=== PATIENT | female | born 1995 | race American Indian/Alaskan Native ===

== ENCOUNTER 2017-03-18 08:47 | Emergency (ER) | payer SELFPAY ==
[2017-03-18 09:02] VITALS: BP 123/98
--- NOTE | 2017-03-18 09:19 | EDM.PDOC ---
ED HPI GENERAL MEDICAL PROBLEM - General Chief Complaint: Upper Extremity Injury/Pain Stated Complaint: INJURED LT ARM Time Seen by Provider: 03/18/17 09:08 Source of Information: Reports: Patient History Limitations: Reports: No Limitations - History of Present Illness INITIAL COMMENTS - FREE TEXT/NARRATIVE: The patient was playing softball last night and she collided with another player and fell on her left arm. It was outstreached and she hyperextended it. She has pain to the left elbow now. She cannot fully extend it. She had surgery on that elbow when she was 2 from a fracture. She denies other injuries. She is right handed. Onset: Sudden Duration: Day(s): (Last night) Location: Reports: Upper Extremity, Left (elbow) Quality: Reports: Sharp Severity: Moderate Improves with: Reports: Immobilization Worsens with: Reports: Movement Context: Reports: Activity (Playing softball) Associated Symptoms: Reports: No Other Symptoms Left Elbow Pain Score (Numeric/FACES): 8 - Related Data Allergies Allergy/AdvReac Type Severity Reaction Status Date / Time No Known Allergies Allergy Verified 03/18/17 09:02 Home Meds: Home Meds . [No Known Home Meds] 03/18/17 [History] Past Medical History Musculoskeletal History: Reports: Fracture - Past Surgical History HEENT Surgical History: Reports: Other (See Below) Other HEENT Surgeries/Procedures: wisdom teeth removed. Musculoskeletal Surgical History: Reports: Other (See Below) Other Musculoskeletal Surgeries/Procedures:: surgical repair of Fx to L) arm. Social & Family History - Tobacco Use Smoking Status *Q: Current Every Day Smoker Years of Tobacco use: 1 Packs/Tins Daily: 0.1 Second Hand Smoke Exposure: No - Caffeine Use Caffeine Use: Reports: Coffee - Recreational Drug Use Recreational Drug Use: No Review of Systems - Review of Systems Review Of Systems: See Below Constitutional: Reports: No Symptoms Eyes: Reports: No Symptoms Ears: Reports: No Symptoms Nose: Reports: No Symptoms Mouth/Throat: Reports: No Symptoms Respiratory: Reports: No Symptoms Cardiovascular: Reports: No Symptoms GI/Abdominal: Reports: No Symptoms Genitourinary: Reports: No Symptoms Musculoskeletal: Reports: Other (Left elbow injury) ED EXAM, GENERAL - Physical Exam Exam: See Below Exam Limited By: No Limitations General Appearance: Alert, No Apparent Distress Ears: Normal External Exam Nose: Normal Inspection Head: Atraumatic, Normocephalic Neck: Normal Inspection Respiratory/Chest: No Respiratory Distress Extremities: Other (Edema and pain upon palpation to the entire elbow. Good sensation and pulses distally.) Course - Vital Signs Last Recorded V/S: Last Vital Signs Temp 97.0 F 03/18/17 08:55 Pulse 94 03/18/17 08:55 Resp 16 03/18/17 08:55 BP 123/98 H 03/18/17 08:55 Pulse Ox 99 03/18/17 08:55 - Re-Assessments/Exams Free Text/Narrative Re-Assessment/Exam: 03/18/17 10:24 Her x-ray shows a joint effusion with fat pad signs. I do not see a fracture. I had Dr Ashford look at it and he did not see a fracture just the joint effusion. I will give her something for and have her follow up with Dr Noel next week. Departure - Departure Time of Disposition: 10:30 Disposition: Home, Self-Care 01 Condition: Good Clinical Impression: Hyperextension injury of left elbow Qualifiers: Encounter type: initial encounter Qualified Code(s): S59.802A - Other specified injuries of left elbow, initial encounter Sprain of left elbow Qualifiers: Encounter type: initial encounter Qualified Code(s): S53.402A - Unspecified sprain of left elbow, initial encounter - Discharge Information Referrals: Tin Noel MD [Physician] - 1 Week Forms: ED Department Discharge Additional Instructions: Ice your elbow for 15 minutes every other hour while awake for 2 days. Try to elevate your elbow above your heart for 2 days. Take the hydrocodone for pain and or motrin. Follow up with Dr Noel within 1 week.
--- NOTE | 2017-03-18 10:06 | CR ---
Left elbow: Multiple views of the left elbow were obtained. Soft tissue calcifications are seen. These are felt to be incidental. Contraceptive device is identified within the subcutaneous tissues as an incidental note. Joint spaces are maintained. Small joint effusion appears to be present. No acute fracture or other bony abnormality is appreciated. Impression: 1. Possible joint effusion. Other incidental findings. 2. No acute bony abnormality is identified on left elbow study. Diagnostic code #2
== END 2017-03-18 10:55 | disposition home or self-care (01) ==
LOC: JD.ED 08:47
DX: S53.402A Unspecified sprain of left elbow, initial encounter (principal); S59.802A Other specified injuries of left elbow, initial encounter; F17.210 Nicotine dependence, cigarettes, uncomplicated; W03.XXXA Other fall on same level due to collision with another person, initial encounter; Y93.64 Activity, baseball
CPT/HCPCS: 73080-26-LT; 73080-LT; 99283